=== PATIENT | male | born 1965 | race Caucasian/White ===

== ENCOUNTER 2017-08-16 15:25 | Emergency (ER) | payer BC, OTHER ==
[~2017-08-16] VITALS: Ht 167.6 cm; Wt 97.7 kg
[2017-08-16] MEDS ORDERED: LISI-662 PO (15:33)
[2017-08-16] MEDS ORDERED: IBUPROFEN 800 MG TABLET PO ONE (15:45)
[2017-08-16 16:46] VITALS: BP 147/99
== END 2017-08-16 17:41 | disposition left against medical advice (07) ==
LOC: EMS 15:31
DX: M12.9 Arthropathy, unspecified (principal); I10 Essential (primary) hypertension
CPT/HCPCS: 99284

== ENCOUNTER 2017-08-27 14:27 | Emergency (ER) | payer BC, OTHER ==
[~2017-08-27] VITALS: Ht 167.6 cm; Wt 100.0 kg
[~2017-08-27 14:27] MED LIST: LISI-662 PO
[2017-08-27 14:30] VITALS: BP 156/99
[2017-08-27] MEDS: KETOROLAC TROMETHAMINE 60 MG/2 ML VIAL IM ONE (16:58)
[2017-08-27] MEDS: CEPHALEXIN MONOHYDRATE 500 MG CAPSULE PO ONE (17:38)
== END 2017-08-27 17:55 | disposition home or self-care (01) ==
LOC: EMS 14:28
DX: S63.501A Unspecified sprain of right wrist, initial encounter (principal); L03.113 Cellulitis of right upper limb; I10 Essential (primary) hypertension; X58.XXXA Exposure to other specified factors, initial encounter; Y93.89 Activity, other specified; Y92.89 Other specified places as the place of occurrence of the external cause; Y99.8 Other external cause status
CPT/HCPCS: 29125; 73110; 96372; 99284; J1885

== ENCOUNTER 2017-10-16 01:02 | Emergency (ER) | payer BC, OTHER ==
[~2017-10-16] VITALS: Ht 167.6 cm; Wt 100.0 kg
[2017-10-16 01:40] LABS: APPEARANCE,URINE CLOUDY (CLEAR); BILIRUBIN,URINE NEGATIVE (NEGATIVE); GLUCOSE, URINE (UA) NEGATIVE (NEGATIVE); KETONES,URINE NEGATIVE (NEGATIVE); LEUKOCYTE ESTERASE ,URINE SMALL (NEGATIVE); NITRATE,URINE NEGATIVE (NEGATIVE); OCCULT BLOOD,URINE LARGE (NEGATIVE); PH,URINE 6.5 (5.0-8.0); PROTEIN,URINE TRACE (NEGATIVE); UROBILINOGEN,URINE 0.2 mg/dL (<=1.0)
[2017-10-16 01:59] LABS: BACTERIA,URINE Few /HPF (None Seen); RBC,URINE >100 /HPF (0-2)
[2017-10-16 02:06] LABS: BASOPHILS % (AUTO) 0.3 % (0.0-2.0); EOSINOPHILS % (AUTO) 1.9 % (1.0-6.0); HEMATOCRIT 43.3 % (41-53); HEMOGLOBIN 14.5 g/dL (13.5-17.5); LYMPHOCYTES # (AUTO) 1.8 K/uL (1.0-4.8); LYMPHOCYTES % (AUTO) 14.5 % (22.0-44.0); MEAN CORPUSCULAR HGB CONC 33.4 G/dL (31.0-37.0); MEAN CORPUSCULAR VOLUME 87 fL (80-100); MONOCYTES % (AUTO) 8.2 % (2.0-9.0); NEUTROPHILS # (AUTO) 9.2 K/uL (1.8-7.7); NEUTROPHILS % (AUTO) 75.1 % (40.0-70.0); PLATELET COUNT (AUTO) 209 K/uL (150-450)
[2017-10-16 02:09] LABS: CREATININE 1.33 mg/dL (0.60-1.30); POTASSIUM 5.4 mmol/L (3.5-5.1)
[2017-10-16 02:15] LABS: ALBUMIN 3.7 g/dL (3.4-5.0); BILIRUBIN,TOTAL 0.5 mg/dL (0.1-1.0); TOTAL PROTEIN, SERUM 7.9 g/dL (6.4-8.2)
[2017-10-16] MEDS ORDERED: IOVERSOL 350 MG/ML 100 ML VIAL ONE (03:32)
[2017-10-16] MEDS ORDERED: SODIUM CHLORIDE 0.9% 100 ML ONE (03:32)
[2017-10-16] MEDS ORDERED: IOVERSOL 350 MG/ML 50 ML VIAL ONE (03:36)
[2017-10-16] MEDS ORDERED: SODIUM CHLORIDE 0.9% 1,000 ML IV ONE (04:30)
[2017-10-16] MEDS ORDERED: ONDANSETRON HCL 4 MG/2 ML VIAL IVP ONE (05:00)
[2017-10-16] MEDS ORDERED: KETOROLAC TROMETHAMINE 30 MG/ML VIAL IVP ONE (05:00)
[2017-10-16] MEDS ORDERED: MORPHINE SULFATE 2 MG/ML SYRINGE IVP ONE (05:00)
[2017-10-16 06:36] VITALS: BP 129/77
== END 2017-10-16 07:31 | disposition short-term general hospital (02) ==
LOC: EMS 01:03
DX: N13.2 Hydronephrosis with renal and ureteral calculous obstruction (principal); N17.9 Acute kidney failure, unspecified; I10 Essential (primary) hypertension; Z79.899 Other long term (current) drug therapy
CPT/HCPCS: 36415; 74177; 80053; 81001; 83690; 85025; 87086; 96361; 96374; 96375; 99285; J1885; J2270; J2405; J7030; J7050; Q9967 ×2